=== PATIENT | male | born 1940 | race Caucasian/White ===

== ENCOUNTER 2020-02-19 21:40 | Emergency (ER) | payer MEDICAID, OTHER, SELFPAY ==
[~2020-02-19] VITALS: Ht 175.3 cm; Wt 97.5 kg
[2020-02-19 21:40] VITALS: BP_SYST 121
[~2020-02-19 21:40] MED LIST: ACET-2165 PO; ASPI-1153 PO; CARV12.548 PO; CAT.1 PO; CHOL500052 PO; CITA10TA17 PO; DEXT50DI5 IV; DOCU-144 PO; FAMO-132 PO; FOLI0.8T2 PO; GLUC1KIT IM; INSU100V11 SQ; INSU100V7 SUBCUT; LEVA1.2527 NEB; LEVO125T8 PO; LIP40 PO; NOR10 PO; SENN8.6T19 PO
--- NOTE | 2020-02-19 21:45 | NUR ---
Patient to ER bed 6 to gown for evaluation. Side rails up.
--- NOTE | 2020-02-19 21:47 | NUR ---
Patient BIB by EMS/ALS from home. C/O Chest pain x today. Per reported, patient had chest pain 10/10 at home after dialysis, EKG- normal sinus with BBB. 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
--- NOTE | 2020-02-19 21:50 | NUR ---
Stat EKG and Given to Dr. Barrera to hamidaal
--- NOTE | 2020-02-19 21:51 | NUR ---
ER Dr. Barrera at bedside examining patient.
--- NOTE | 2020-02-19 22:24 | NUR ---
X-ray at bedside.
[2020-02-19 22:51] LABS: BASOPHILS % (AUTO) 0.6 % (0.0-2.0); EOSINOPHILS # (AUTO) 0.2 K/uL (0.0-0.4); EOSINOPHILS % (AUTO) 2.7 % (0.0-4.0); HEMATOCRIT 34.7 % (36-54); HEMOGLOBIN 11.1 g/dL (14.0-18.0); LYMPHOCYTES # (AUTO) 1.5 K/uL (1.0-5.5); LYMPHOCYTES % (AUTO) 18.3 % (20.5-51.5); MEAN CORPUSCULAR HEMOGLOBIN 32 pg (27-31); MEAN CORPUSCULAR HGB CONC 32 % (32-36); MEAN CORPUSCULAR VOLUME 102 fL (79.0-98.0); MONOCYTES # (AUTO) 0.7 K/uL (0.0-1.0); MONOCYTES % (AUTO) 8.4 % (1.7-9.3); NEUTROPHILS # (AUTO) 5.9 K/uL (1.8-7.7); PLATELET COUNT (AUTO) 293 K/uL (130-430); RED BLOOD CELL COUNT(AUTO) 3.42 MIL/uL (4.2-6.2); RED CELL DISTRIBUTION WIDTH 16.1 % (9.0-15.0); WHITE BLOOD COUNT (AUTO) 8.4 K/uL (4.8-10.8)
--- NOTE | 2020-02-20 00:11 | NUR ---
ER at bedside for eval
[2020-02-20 00:15] LABS: ANION GAP 4 (5-15); CHLORIDE 100 mmol/L (98-107); CREATININE 4.19 mg/dL (0.55-1.30); GLUCOSE 132 mg/dL (70-99); POTASSIUM 4.3 mmol/L (3.5-5.1); SODIUM SERUM 138 mmol/L (136-145); UREA NITROGEN, BLOOD 35 mg/dL (8-21)
--- NOTE | 2020-02-20 02:15 | NUR ---
Patient given written and verbal discharge instructions and verbalizes understanding. ER MD discussed with patient the results and treatment provided. Patient in stable condition. ID arm band removed. IV catheter removed intact and dressing applied, no active bleeding. No Rx given. Patient educated on pain management and to follow up with PMD. Pain Scale 1/10. Opportunity for questions provided and answered. Medication side effect fact sheet provided.
[2020-02-20 02:16] VITALS: BP_SYST 139
--- NOTE | 2020-02-20 02:24 | NUR ---
Called his family/Daughter for medications, She states " I will worm picker medication in the morning."
== END 2020-02-20 02:24 | disposition home or self-care (01) ==
LOC: SED 21:40
DX: R07.89 Other chest pain (principal)
CPT/HCPCS: 36415; 71045; 80048; 84484; 85025; 99285